=== PATIENT | male | born 2000 | race Caucasian/White ===

== ENCOUNTER 2024-07-18 17:55 | Inpatient (IN) | payer OTHER ==
[~2024-07-18] VITALS: Ht 188 cm; Wt 83.6 kg
[2024-07-18 18:25] VITALS: PULSE 64; RESP 16; TEMP 99.1
[2024-07-18 18:41] LABS: BASOPHILS % 0.2 % (0.0-1.0); EOSINOPHILS # (AUTO) 0.1 (0.0-0.4); EOSINOPHILS % 0.9 % (0.0-6.0); HEMATOCRIT 42.8 % (38.2-49.6); HEMOGLOBIN 14.5 g/dL (14.0-18.0); LYMPHOCYTES % 19.5 % (18.0-39.1); MEAN CORPUSCULAR HEMOGLOBIN 28.8 pg (28-32); MEAN CORPUSCULAR HGB CONC 33.9 g/dL (31-35); MEAN CORPUSCULAR VOLUME 85.1 fL (81-99); MONOCYTES % 9.3 % (4.4-11.3); NEUTROPHILS # (AUTO) 7.2 (2.1-6.9); NEUTROPHILS % 69.8 % (38.7-80.0); PLATELET COUNT 220 x10e3/uL (140-360); RED BLOOD COUNT 5.03 x10e6/uL (4.3-5.7); RED CELL DISTRIBUTION WIDTH 12.2 % (11.7-14.4); WHITE BLOOD COUNT 10.29 x10e3/uL (4.8-10.8)
[2024-07-18] MEDS: SODIUM CHLORIDE 0.9% 1000ML 1,000 ML IV STA (18:41)
[2024-07-18] MEDS ORDERED: IOPAMIDOL 370 MG/ML 100 ML INFUS..BTL INJ ONE (18:49)
[2024-07-18 19:04] LABS: ALBUMIN 4.2 g/dL (3.5-5.0); ALBUMIN/GLOBULIN RATIO 1.2 (0.8-2.0); ANION GAP 15.9 mmol/L (8-16); BILIRUBIN,TOTAL 1.2 mg/dL (0.2-1.2); CALCIUM 9.3 mg/dL (8.4-10.2); CREATININE, SERUM 1.08 mg/dL (0.72-1.25); POTASSIUM 3.9 mmol/L (3.5-5.1); TOTAL PROTEIN 7.8 g/dL (6.5-8.1)
[2024-07-18 19:57] LABS: BILIRUBIN,URINE NEGATIVE (NEGATIVE); CLARITY,URINE SL CLOUDY (CLEAR); COLOR,URINE YELLOW (YELLOW); GLUCOSE, URINE NEGATIVE (NEGATIVE); KETONES,URINE NEGATIVE (NEGATIVE); LEUKOCYTE ESTERASE ,URINE NEGATIVE (NEGATIVE); NITRITE,URINE NEGATIVE (NEGATIVE); PH,URINE 6 (5 - 7); PROTEIN,URINE DIPSTICK 1+ (NEGATIVE); URINE UROBILINOGEN 0.2 mg/dL (0.2 - 1)
[2024-07-18 20:14] LABS: BACTERIA,URINE FEW /HPF
[2024-07-18] MEDS: ONDANSETRON HCL INJ 2MG/ML 2ML 2 MG/ML VIAL IV STA (20:55)
[2024-07-18] MEDS: Morphine 4mg INJECTION 4 MG/ML INJ IV STA (20:56)
[2024-07-18] MEDS: METRONIDAZOLE 500MG/NS 100ML 100 ML IV SCH (21:03)
[2024-07-18] MEDS ORDERED: Morphine 4mg INJECTION 4 MG/ML INJ IV PRN (22:00)
[2024-07-18] MEDS ORDERED: ONDANSETRON HCL INJ 2MG/ML 2ML 2 MG/ML VIAL IV PRN (22:00)
[2024-07-18] MEDS: SODIUM CHLORIDE 0.9% 1000ML 1,000 ML IV SCH (22:32)
[2024-07-18 23:35] VITALS: BP 138/79; PULSE 52; RESP 18; TEMP 98.1; O2SAT 100
[2024-07-18 23:39] VITALS: BP 138/79; PULSE 52; RESP 18; TEMP 98.1; O2SAT 100
[2024-07-18] MEDS ORDERED: LEVOTHYROXINE200 MCG PO (23:54)
[2024-07-18] MEDS ORDERED: CITALOPRAM HBR20 MG PO (23:54)
[2024-07-19] VITALS (9 sets, daily range): BP systolic 110–138; BP diastolic 55–82; PULSE 48–70; RESP 12–19; TEMP 98–98.6; O2SAT 99–100
[2024-07-19] MEDS ORDERED: HYDRALAZINE HCL 20 MG/ML VIAL IV PRN (00:15)
[2024-07-19 05:40] LABS: BASOPHILS % 0.3 % (0.0-1.0); EOSINOPHILS # (AUTO) 0.4 (0.0-0.4); EOSINOPHILS % 4.5 % (0.0-6.0); HEMATOCRIT 40.3 % (38.2-49.6); HEMOGLOBIN 13.1 g/dL (14.0-18.0); LYMPHOCYTES # (AUTO) 2.4 (1.0-3.2); LYMPHOCYTES % 30.6 % (18.0-39.1); MEAN CORPUSCULAR HEMOGLOBIN 28.5 pg (28-32); MEAN CORPUSCULAR HGB CONC 32.5 g/dL (31-35); MEAN CORPUSCULAR VOLUME 87.8 fL (81-99); MONOCYTES # (AUTO) 0.9 (0.2-0.8); MONOCYTES % 11.8 % (4.4-11.3); NEUTROPHILS # (AUTO) 4.1 (2.1-6.9); NEUTROPHILS % 52.7 % (38.7-80.0); PLATELET COUNT 210 x10e3/uL (140-360); RED BLOOD COUNT 4.59 x10e6/uL (4.3-5.7); RED CELL DISTRIBUTION WIDTH 12.6 % (11.7-14.4)
[2024-07-19 06:18] LABS: ALBUMIN 3.4 g/dL (3.5-5.0); ALBUMIN/GLOBULIN RATIO 1.1 (0.8-2.0); ANION GAP 11.9 mmol/L (8-16); BILIRUBIN,TOTAL 0.7 mg/dL (0.2-1.2); CALCIUM 8.4 mg/dL (8.4-10.2); CREATININE, SERUM 1.09 mg/dL (0.72-1.25); POTASSIUM 3.9 mmol/L (3.5-5.1); TOTAL PROTEIN 6.5 g/dL (6.5-8.1)
[2024-07-19 06:45] LABS: MAGNESIUM 2.2 MG/DL (1.3-2.1)
[2024-07-19 07:09] LABS: CHOL/HDL RATIO 3.3 (3.9-4.7); PHOSPHORUS 2.8 MG/DL (2.3-4.7)
[2024-07-19 07:41] LABS: FREE T4 (FREE THYROXINE) 0.79 ng/dL (0.8-1.8); THYROID STIMULATING HORMONE 4.693 uIU/mL (0.350-4.940)
[2024-07-19] MEDS ORDERED: SIMETHICONE 80 MG CHEW PO PRN (08:15)
[2024-07-19] MEDS ORDERED: BUPIVACAINE HCL 0.5% INJ 30 ML VIAL INJ ONE (15:40)
[2024-07-19] MEDS: ACETAMINOPHEN/CODEINE 300MG - 30MG TAB PO PRN (21:47)
[2024-07-20 04:00] VITALS: BP 116/59; PULSE 60; RESP 18; TEMP 97.8; O2SAT 100
[2024-07-20] MEDS: LEVOTHYROXINE SODIUM 100 MCG TAB PO SCH (05:37)
[2024-07-20 08:00] VITALS: BP 116/59; PULSE 60; RESP 18; TEMP 97.8; O2SAT 100
[2024-07-20 08:02] VITALS: BP 109/64; PULSE 92; RESP 19; TEMP 97.9; O2SAT 98
[2024-07-20 08:04] LABS: BASOPHILS % 0.1 % (0.0-1.0); EOSINOPHILS % 0.2 % (0.0-6.0); HEMATOCRIT 40.3 % (38.2-49.6); HEMOGLOBIN 12.8 g/dL (14.0-18.0); LYMPHOCYTES # (AUTO) 1.6 (1.0-3.2); LYMPHOCYTES % 14.3 % (18.0-39.1); MEAN CORPUSCULAR HEMOGLOBIN 28.2 pg (28-32); MEAN CORPUSCULAR HGB CONC 31.8 g/dL (31-35); MEAN CORPUSCULAR VOLUME 88.8 fL (81-99); MONOCYTES % 9.1 % (4.4-11.3); NEUTROPHILS # (AUTO) 8.3 (2.1-6.9); NEUTROPHILS % 75.8 % (38.7-80.0); PLATELET COUNT 214 x10e3/uL (140-360); RED BLOOD COUNT 4.54 x10e6/uL (4.3-5.7); RED CELL DISTRIBUTION WIDTH 12.1 % (11.7-14.4); WHITE BLOOD COUNT 10.98 x10e3/uL (4.8-10.8)
[2024-07-20 08:32] LABS: ALBUMIN 3.2 g/dL (3.5-5.0); ALBUMIN/GLOBULIN RATIO 1.1 (0.8-2.0); ANION GAP 12.2 mmol/L (8-16); BILIRUBIN,TOTAL 0.5 mg/dL (0.2-1.2); CALCIUM 8.4 mg/dL (8.4-10.2); CREATININE, SERUM 1.03 mg/dL (0.72-1.25); POTASSIUM 4.2 mmol/L (3.5-5.1); TOTAL PROTEIN 6.2 g/dL (6.5-8.1)
[2024-07-20 10:33] VITALS: PULSE 85; RESP 16; O2SAT 96
[2024-07-20 11:58] VITALS: BP 115/59; PULSE 57; RESP 21; TEMP 98.1; O2SAT 100
[2024-07-20] MEDS ORDERED: ONDANSETRON ODT4 MG PO (14:46)
[2024-07-20] MEDS ORDERED: ACETAMINOPHEN-1 EAC4 PO (14:46)
[2024-07-20] MEDS ORDERED: SIMETHICONE80 MG PO (14:46)
== END 2024-07-20 16:34 | disposition home or self-care (01) | DRG 399 ==
LOC: ER 18:02 → ERHOLD 20:40 → MED/SURG 23:10
PROVIDERS: ADMIT Internal Medicine; ATTEND Internal Medicine
PROC: 0DTJ4ZZ Resection of Appendix, Percutaneous Endoscopic Approach (ICD-10-PCS; principal; 2024-07-19 16:15)
DX: K35.80 Unspecified acute appendicitis (principal); E03.9 Hypothyroidism, unspecified; Z79.890 Hormone replacement therapy; Z88.0 Allergy status to penicillin
CPT/HCPCS: 36415; 74177; 80053; 80061; 81001; 83036; 83690; 83735; 84100; 84439; 84443; 85025; 88304; 94799; 99252; 99284; J0696; J2270; J2405; J2543; J7030; Q9967